=== PATIENT | female | born 2000 | race Two or more races ===

== ENCOUNTER 2022-01-06 19:27 | Emergency (ER) | payer SELFPAY ==
[~2022-01-06] VITALS: Ht 177.8 cm; Wt 63.5 kg
--- NOTE | 2022-01-06 19:35 | NUR ---
[id number]. UNRESPONSIVE AFTER SNORTING FENTANYL. GIVEN NARCAN 4MG NASALLY & NARCAN 4MG IV. PLACED ON BED, AAOX4, NAUSEATED.
[2022-01-06 20:09] LABS: BASOPHILS % (AUTO) 0.2 % (0.0-2.0); HEMATOCRIT 39 % (33-45); LYMPHOCYTES # (AUTO) 0.8 K/uL (0.8-4.8); LYMPHOCYTES % (AUTO) 6.3 % (20.0-44.0); MEAN CORPUSCULAR HGB CONC 33 g/dl (31.0-36.0); MEAN CORPUSCULAR VOLUME 86 fL (82-100); MONOCYTES # (AUTO) 0.5 K/uL (0.1-1.30); MONOCYTES % (AUTO) 4.2 % (2.0-12.0); NEUTROPHILS # (AUTO) 11.2 K/uL (1.8-8.9); NEUTROPHILS % (AUTO) 89.3 % (43.0-81.0); PLATELET COUNT (AUTO) 231 K/uL (150-450); RED BLOOD CELL COUNT(AUTO) 4.55 MIL/uL (4.0-5.2); WHITE BLOOD COUNT (AUTO) 12.6 K/uL (4.3-11.0)
[2022-01-06] MEDS ORDERED: ONDANSETRON HCL/PF 4 MG/2 ML VIAL ONE (20:19)
[2022-01-06 20:22] LABS: CALCIUM, SERUM 8.6 mg/dL (8.5-10.1); CARBON DIOXIDE 25 mmol/L (21-32); CHLORIDE 101 mmol/L (98-107); CREATININE 1.1 mg/dL (0.6-1.3); GLUCOSE 257 mg/dL (74-106); POTASSIUM 3.9 mmol/L (3.5-5.1); SODIUM SERUM 138 mmol/L (136-145); UREA NITROGEN, BLOOD 17 mg/dL (7-18)
--- NOTE | 2022-01-06 20:25 | NUR ---
spoke to matthias at [facility] at [phone]. matthias will fiber picker the the patient when she's medically clear
--- NOTE | 2022-01-06 20:29 | NUR ---
FLOORING SALES MANAGER AT PT'S BEDSIDE
[2022-01-06 20:30] LABS: ALANINE AMINOTRANSFERASE 27 U/L (12-78); ALBUMIN 4.4 g/dL (3.4-5.0); ALCOHOL, BLOOD < 3 mg/dL (0-0); ALKALINE PHOSPHATASE 99 U/L (46-116); ASPARTATE AMINOTRANSFERASE 26 U/L (15-37); BILIRUBIN,DIRECT 0.1 mg/dL (0.0-0.2); BILIRUBIN,TOTAL 0.4 mg/dL (0.2-1.0); TOTAL PROTEIN, SERUM 7.9 g/dL (6.4-8.2)
[2022-01-06] MEDS ORDERED: ONDANSETRON HCL/PF 4 MG/2 ML VIAL IV ONE (20:30)
[2022-01-06] MEDS ORDERED: IV NS 0.9% 1,000 ML BAG IV ONE (20:30)
[2022-01-06 20:31] LABS: ACETAMINOPHEN < 0 ug/ml (10-30)
--- NOTE | 2022-01-06 20:32 | NUR ---
IV LAC #20G S/L; PATENT AND INTACT.
--- NOTE | 2022-01-06 21:43 | NUR ---
URINE SAMPLE SENT TO LAB
[2022-01-06 22:52] LABS: BILIRUBIN,URINE NEGATIVE (NEGATIVE); COLOR,URINE YELLOW (YELLOW); LEUKOCYTE ESTERASE ,URINE NEGATIVE (NEGATIVE); NITRITE, URINE NEGATIVE (NEGATIVE); PROTEIN,URINE TRACE mg/dl (NEGATIVE); UGLUCOSE 500 MG/DL mg/dL (NEGATIVE); UROBILINOGEN,URINE 0.2 EU/dL (0.2)
--- NOTE | 2022-01-06 23:12 | NUR ---
CALLED JATINDER TURNER
--- NOTE | 2022-01-06 23:21 | NUR ---
PT IS CLEARED FOR DISCHARGE. IN STABLE CONDITION. NOT IN ANY DISTRESS. AMBUALTORY ON STEADY GAIT. AWAITING FOR TRANSPORT TO REHAB.
[2022-01-06] MEDS ORDERED: ONDANSETRON 4 MG TAB.RAPDIS SL ONE (23:30)
[2022-01-06] MEDS ORDERED: ONDANSETRON 4 MG TAB.RAPDIS ONE (23:30)
--- NOTE | 2022-01-06 23:45 | NUR ---
PT PICKED UP BY STAFF AT THE REHAB. PT IS IN STABLE CONDITION
[2022-01-06 23:53] VITALS: BP 121/77
== END 2022-01-06 23:46 | disposition short-term general hospital (02) ==
LOC: ER 19:28
DX: T40.411A Poisoning by fentanyl or fentanyl analogs, accidental (unintentional), initial encounter (principal); R11.10 Vomiting, unspecified; R73.9 Hyperglycemia, unspecified; Y92.89 Other specified places as the place of occurrence of the external cause
CPT/HCPCS: 36415; 71045; 80048; 80076; 80143; 80307; 80320; 81003; 82010; 82962; 84703; 85025; 96361; 96374; 99291; J2405; J7030; Q0162; G0480

== ENCOUNTER 2022-03-07 04:03 | Emergency (ER) | payer SELFPAY ==
[~2022-03-07] VITALS: Ht 177.8 cm; Wt 63.5 kg
--- NOTE | 2022-03-07 04:10 | NUR ---
ZANA 89 FROM HOME C/O OD ON FENTANYL PILLS. [employer]ICE MANAGER EMS ADMIN NARCAN 4MG. PT A/OX3. TOLERATING R/A WELL WITH NO RESP DISTRESS. SAFETY MEASURES IN PLACE. CONNECTED PT TO POX AND MONITOR.
--- NOTE | 2022-03-07 04:21 | NUR ---
20G RAC ESTABLISHED. BLOOD DRAWN AND SENT O LAB. UNABLE TO PROVIDE URINE AT THIS TIME.
[2022-03-07 04:27] LABS: BASOPHILS % (AUTO) 0.2 % (0.0-2.0); EOSINOPHILS % (AUTO) 0.2 % (0.0-6.0); HEMATOCRIT 41 % (33-45); HEMOGLOBIN 13.4 g/dL (11.5-14.8); LYMPHOCYTES # (AUTO) 1.3 K/uL (0.8-4.8); LYMPHOCYTES % (AUTO) 16.3 % (20.0-44.0); MEAN CORPUSCULAR HGB CONC 33 g/dl (31.0-36.0); MEAN CORPUSCULAR VOLUME 90 fL (82-100); MONOCYTES # (AUTO) 0.4 K/uL (0.1-1.30); MONOCYTES % (AUTO) 4.5 % (2.0-12.0); NEUTROPHILS # (AUTO) 6.3 K/uL (1.8-8.9); NEUTROPHILS % (AUTO) 78.8 % (43.0-81.0); PLATELET COUNT (AUTO) 218 K/uL (150-450); RED BLOOD CELL COUNT(AUTO) 4.56 MIL/uL (4.0-5.2); WHITE BLOOD COUNT (AUTO) 7.9 K/uL (4.3-11.0)
--- NOTE | 2022-03-07 04:31 | NUR ---
[employer] AT PT'S BEDSIDE
--- NOTE | 2022-03-07 04:37 | NUR ---
PT NOT ABLE TO URINATE AT THIS TIME. OFFERED PT WATER; TOLERATING WELL.
[2022-03-07 04:44] LABS: ALANINE AMINOTRANSFERASE 33 U/L (12-78); ALBUMIN 4.6 g/dL (3.4-5.0); ALCOHOL, BLOOD < 3 mg/dL (0-0); ALKALINE PHOSPHATASE 92 U/L (46-116); ASPARTATE AMINOTRANSFERASE 26 U/L (15-37); BILIRUBIN,DIRECT 0.1 mg/dL (0.0-0.2); BILIRUBIN,TOTAL 0.6 mg/dL (0.2-1.0); CALCIUM, SERUM 8.4 mg/dL (8.5-10.1); CARBON DIOXIDE 24 mmol/L (21-32); CHLORIDE 98 mmol/L (98-107); CREATININE 1.5 mg/dL (0.6-1.3); GLUCOSE 302 mg/dL (74-106); POTASSIUM 3.9 mmol/L (3.5-5.1); SODIUM SERUM 136 mmol/L (136-145); TOTAL PROTEIN, SERUM 8.4 g/dL (6.4-8.2); UREA NITROGEN, BLOOD 16 mg/dL (7-18)
[2022-03-07 04:45] LABS: ACETAMINOPHEN 0 ug/ml (10-30)
--- NOTE | 2022-03-07 05:01 | NUR ---
URINE COLLECTED AND SENT TO LAB
[2022-03-07 05:02] LABS: BILIRUBIN,URINE NEGATIVE (NEGATIVE); COLOR,URINE YELLOW (YELLOW); LEUKOCYTE ESTERASE ,URINE NEGATIVE (NEGATIVE); NITRITE, URINE NEGATIVE (NEGATIVE); PROTEIN,URINE 100 mg/dl (NEGATIVE); UGLUCOSE 250 MG/DL mg/dL (NEGATIVE); UROBILINOGEN,URINE 0.2 EU/dL (0.2)
--- NOTE | 2022-03-07 05:04 | NUR ---
POC BG 214. MADE AWARE.
[2022-03-07] MEDS ORDERED: ONDANSETRON HCL/PF 4 MG/2 ML VIAL ONE (05:51)
[2022-03-07] MEDS ORDERED: ONDANSETRON HCL/PF 4 MG/2 ML VIAL IV ONE (06:00)
--- NOTE | 2022-03-07 08:11 | NUR ---
IV removed. Catheter intact and site benign. Pressure and 4x4 applied to site. No bleeding noted.Patient discharged to home in stable condition. Written and verbal after care instructions given. Patient verbalizes understanding of instruction.
[2022-03-07 08:12] VITALS: BP 123/60
== END 2022-03-07 08:45 | disposition home or self-care (01) ==
LOC: ER 04:08
DX: T40.411A Poisoning by fentanyl or fentanyl analogs, accidental (unintentional), initial encounter (principal); R73.9 Hyperglycemia, unspecified; R11.10 Vomiting, unspecified; R94.31 Abnormal electrocardiogram [ECG] [EKG]; Y92.89 Other specified places as the place of occurrence of the external cause
CPT/HCPCS: 99285; 96374; 93005; 80307 ×2; 85025; 80048; 80076; 81003; 36415; 82962; 80143; 80320; J2405; A6403; G0480